=== PATIENT | male | born 2000 | race Caucasian/White ===

== ENCOUNTER 2020-12-08 23:45 | Emergency (ER) | payer OTHER ==
--- NOTE | 2020-12-09 02:12 | ED Physician Documentation ---
PD HPI UPPER EXT INJURY - Stated complaint Stated Complaint: R THUMB PX - Chief complaint Chief Complaint: Trauma Ext - History obtained from History obtained from: Patient - History of Present Illness Location: Right, Finger (thumb) Type of injury: Blunt / blow Where injury occurred: Work Timing - onset: Enter time (18:00), Today Timing - details: Abrupt onset Pain level now: 2 Worsened by: Palpating Associated symptoms: Discolored Recently seen: Not recently seen - Additonal information Additional information: patient is right hand dominant. Tonight at approximately 6 PM while at work, a tool he was using suddenly slipped as he was applying torque to it, causing it to strike his right thumb. c/o right thumb pain Review of Systems Musculoskeletal: reports: Extremity pain (right thumb) PD PAST MEDICAL HISTORY - Past Medical History Past Medical History: No Cardiovascular: None Respiratory: None Neuro: None Endocrine/Autoimmune: None GI: None : None HEENT: None Psych: None Musculoskeletal: None Derm: None - Past Surgical History Past Surgical History: Yes General: Other - Present Medications Home Medications: Ambulatory Orders Medication Instructions Recorded Confirmed No Known Home Medications 12/08/20 12/08/20 - Allergies Allergies/Adverse Reactions: Allergies Allergy/AdvReac Type Severity Reaction Status Date / Time No Known Drug Allergies Allergy Verified 12/08/20 23:50 - Social History Does the pt smoke?: Yes Smoking Status: Current every day smoker Does the pt drink ETOH?: Yes Does the pt have substance abuse?: No - Immunizations Immunizations are current?: Yes - POLST Patient has POLST: No PD ED PE NORMAL - Vitals Vital signs reviewed: Yes - General General: Alert and oriented X 3, No acute distress, Well developed/nourished PD ED PE EXPANDED - Extremities Extremities: Tenderness, Other (right thumb tenderness over distal phalanx/tuft. there is a small subungual hematoma that is limited to lunula) Results - Vitals Vitals: Vital Signs - 24 hr 12/08/20 12/09/20 23:51 02:30 Temperature 36.7 C Heart Rate 71 68 Respiratory 18 15 Rate Blood Pressure 128/60 121/73 O2 Saturation 98 100 Oxygen O2 Source Room air - Rads (name of study) right hand xrays Radiology: Prelim report reviewed, See rad report PD MEDICAL DECISION MAKING - ED course Complexity details: reviewed results, considered differential, d/w patient ED course: no fracture on xrays. he has intact ROM at IP and MCP of right thumb. there is a small subungual hematoma which is too small to benefit from trephoning. Patient declines analgesics when offered. Departure - Departure Disposition: 01 Home, Self Care Clinical Impression: Thumb contusion Qualifiers: Encounter type: initial encounter Damage to nail status: without damage Laterality: right Qualified Code(s): S60.011A - Contusion of right thumb without damage to nail, initial encounter Condition: Good Instructions: ED Contusion Finger Discharge Date/Time: 12/09/20 02:31
[2020-12-09 02:31] VITALS: BP 121/73
--- NOTE | 2020-12-09 08:21 | XRAY Report ---
PROCEDURE: Hand 3 View RT INDICATIONS: Trauma TECHNIQUE: 3 views of the hand(s) acquired. COMPARISON: None. FINDINGS: Bones: No fractures or dislocations. No suspicious bony lesions. Soft tissues: No suspicious soft tissue calcifications. IMPRESSION: No trauma found, no soft tissue swelling seen. Reviewed by: Darwin Lechuga MD on 12/09/2020 8:20 AM PDT Approved by: Darwin Lechuga MD on 12/09/2020 8:20 AM PDT Station ID: [id number]
== END 2020-12-09 02:31 | disposition home or self-care (01) ==
LOC: ED 23:45
DX: S60.011A Contusion of right thumb without damage to nail, initial encounter (principal); W22.8XXA Striking against or struck by other objects, initial encounter; Y99.0 Civilian activity done for income or pay; F17.200 Nicotine dependence, unspecified, uncomplicated
CPT/HCPCS: 99281; 99283

== ENCOUNTER 2022-08-08 12:07 | Emergency (ER) | payer OTHER ==
[2022-08-08 12:17] VITALS: BP 131/80
[2022-08-08] MEDS ORDERED: LIDOCAINE-EPINEPH-TETRACAINE 3 ML SYRINGE TOP STA (15:32)
--- NOTE | 2022-08-08 15:48 | ED Physician Documentation ---
History of Present Illness - Stated complaint Stated Complaint: CHIN LAC,CONGESTION,COUGH,SOA - Chief complaint Chief Complaint: Laceration - History obtained from History obtained from: Patient - History of Present Illness Timing: Today Pain level max: 3 Pain level now: 1 - Additonal information Additional information: Patient is a 22-year-old male who presents to the emergency department stating that he was at work today when he fell forward hitting his chin and causing a laceration. He is [employer]. Tetanus is up-to-date. No loss of consciousness. No head, neck, back pain. No numbness or tingling. [facility] [employer] [facility] sent him here for evaluation. Review of Systems Constitutional: denies: Fever, Chills Neurologic: denies: Confused, LOC PD PAST MEDICAL HISTORY - Past Medical History Past Medical History: Yes Cardiovascular: None Respiratory: None Neuro: None Endocrine/Autoimmune: None GI: None : None HEENT: None Psych: ADD/ADHD Musculoskeletal: None Derm: None - Past Surgical History Past Surgical History: Yes General: Other - Present Medications Home Medications: Ambulatory Orders Medication Instructions Recorded Confirmed Dextroamphetamine/Amphetamine 20 mg PO DAILY 08/08/22 08/08/22 [Adderall Xr 10 mg Capsule] - Allergies Allergies/Adverse Reactions: Allergies Allergy/AdvReac Type Severity Reaction Status Date / Time No Known Drug Allergies Allergy Verified 08/08/22 12:14 - Social History Does the pt smoke?: Yes Smoking Status: Current every day smoker Does the pt drink ETOH?: Yes Does the pt have substance abuse?: No - Immunizations Immunizations are current?: Yes - POLST Patient has POLST: No PD ED PE NORMAL - Vitals Vital signs reviewed: Yes - General General: Alert and oriented X 3, No acute distress - HEENT HEENT: Atraumatic, PERRL, Moist mucous membranes, Other (1 cm submental laceration. 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, No motor deficit, No sensory deficit, Normal speech Eye Opening: Spontaneous Motor: Obeys Commands Verbal: Oriented GCS Score: 15 Results - Vitals Vitals: Vital Signs - 24 hr 08/08/22 12:11 Temperature 36.5 C Heart Rate 78 Respiratory 16 Rate Blood Pressure 131/80 H O2 Saturation 100 Oxygen O2 Source Room air Procedures - Laceration (location) Submental Length in cm: 1 Wound type: Linear, Into subcut fat Neurovascular status: Sensory intact, Motor intact, Vascular intact Anesthesia: LET Wound preparation: Irrigated copiously NS Skin layer closure: Dermabond Other: Patient tolerated well, No complications, Neurovascular intact, Tetanus UTD PD Medical Decision Making - ED course Complexity details: considered differential, d/w patient ED course: Patient with a chin laceration. No intraoral injuries. No neck pain. No loss of consciousness. Laceration repaired with Dermabond. Tolerated well. No further bleeding. Tetanus up-to-date. Warnings of infection and instructions on wound care given at bedside. Also counseled on how to minimize scarring. Patient counseled regarding signs and symptoms for which I believe and urgent re-evaluation would be necessary. Patient with good understanding of and agreement to plan and is comfortable going home at this time This document was made in part using voice recognition software. While efforts are made to proofread this document, sound alike and grammatical errors may occur. Departure - Departure Disposition: 01 Home, Self Care Clinical Impression: Chin laceration Qualifiers: Encounter type: initial encounter Qualified Code(s): S01.81XA - Laceration without foreign body of other part of head, initial encounter Condition: Good Instructions: ED Laceration Facial Skin Glue Follow-Up: your,doctor as needed [Other] Comments: Keep the wound clean. Do not scrub the area or apply ointment as this may dissolve the glue. Return if you notice redness, swelling or drainage from the wound. Discharge Date/Time: 08/08/22 16:33
== END 2022-08-08 16:33 | disposition home or self-care (01) ==
LOC: ED 12:07
DX: S01.81XA Laceration without foreign body of other part of head, initial encounter (principal); W19.XXXA Unspecified fall, initial encounter; Y99.1 Military activity; F17.200 Nicotine dependence, unspecified, uncomplicated
CPT/HCPCS: 12011; 99281